=== PATIENT | female | born 1990 | race Caucasian/White ===

== ENCOUNTER 2017-04-24 11:35 | Emergency (ER) | payer BC ==
[~2017-04-24] VITALS: Ht 160 cm; Wt 83.9 kg
[2017-04-24 11:44] VITALS: TEMP 37; Ht 160 cm; Wt 83.9 kg
[2017-04-24] MEDS ORDERED: KETOROLAC TROMETHAMINE 30 MG/ML VIAL IV STA (11:59)
[2017-04-24] MEDS ORDERED: SODIUM CHLORIDE 0.9% 1000ML 1,000 ML IV STA (11:59)
[2017-04-24] MEDS ORDERED: BENZONATATE 100MG CAP PO ONE (12:00)
--- NOTE | 2017-04-24 12:14 | DIAGNOSTIC IMAGING REPORT ---
CHEST ONE VIEW PORTABLE CLINICAL HISTORY: 26 years-old Female presenting with cough, loss of voice . TECHNIQUE: Portable upright AP view of the chest was obtained. COMPARISON: None. FINDINGS: Cardiomediastinal silhouette normal. Lungs and pleural spaces clear. Osseous structures normal. Upper abdomen normal. IMPRESSION: 1. No acute cardiopulmonary disease. Electronically signed by: Yasmany Ford M.D. 04/24/2017 12:13 PM Dictated Date/Time: 04/24/2017 12:12 PM
[2017-04-24 12:30] LABS: BASO % 0.3 %; BASO ABS # 0.03 K/uL (0-0.2); COMPLETE YES; EOS % 3.2 %; HEMATOCRIT 37.8 % (37-47); IG% 0.3 %; LYMPH % 33.9 %; LYMPH ABS # 2.96 K/uL (1.2-3.4); MEAN CELL VOLUME 83.3 fL (80-100); MEAN CORPUSCULAR HEMOGLOBIN 28.2 pg (25-34); MEAN CORPUSCULAR HGB CONC 33.9 g/dl (32-36); MEAN PLATELET VOLUME 9.5 fL (7.4-10.4); MONO % 3.8 %; NEUT % 58.5 %; PLATELET COUNT 381 K/uL (130-400); RED BLOOD COUNT 4.54 M/uL (4.2-5.4); WHITE BLOOD COUNT 8.72 K/uL (4.8-10.8)
[2017-04-24 12:49] LABS: BUN/CREATININE RATIO 14.6 (10-20); CALCIUM 9.5 mg/dl (8.5-10.1); CREATININE 0.72 mg/dl (0.60-1.20); POTASSIUM 3.8 mmol/L (3.5-5.1)
[2017-04-24 14:05] VITALS: BP 148/97; PULSE 83; O2SAT 99
--- NOTE | 2017-04-24 17:13 | EMERGENCY ROOM VISIT NOTE ---
History Report prepared by Leroy: Tobi Weinstein Under the Supervision of: Dr. Boo Hernandez D.O. First contact with patient: 11:51 Chief Complaint: COUGH Stated Complaint: COUGH,LOSS OF VOICE, CHEST PAIN History of Present Illness The patient is a 26 year old female who presents to the Emergency Room with complaints of a worsening cough for the past fives days. The patient states that five days ago she started to lose her voice, and she has been having a productive cough brining up green sputum. The patient states that she additionally has a fever, though it has never gotten above 100.4. She states that she is having some chest pain and back pain, though she thinks that it is due to the coughing. The patient additionally states that today her right ear started ringing, and she has been having a sore throat. Patient denies diabetes , hypertension, hyperlipidemia, CAD, history of sudden at a young age, and smoking. Patient denies swelling of calves, recent trips, history of immobilization or recent surgery, prior history of DVT, hemoptysis, history of malignancy, history of smoking, or control/estrogen use. Pt denies headache, change in vision, shortness of breath, nausea, vomiting, diarrhea, pain with urination, and melena. Source of History: patient Onset: five days Position: other (global) Quality: other (cough) Timing: worsening Associated Symptoms: + fevers, + sorethroat, + chest pain, + back pain Note: Associated symptoms: Losing voice, ear ringing Review of Systems See HPI for pertinent positives & negatives. A total of 10 systems reviewed and were otherwise negative. Past Medical & Surgical Medical Problems: (1) Asthma Social History Smoking Status: Never Smoker Marital Status: in relationship Housing Status: lives with significant other Occupation Status: employed Current/Historical Medications No Active Prescriptions or Reported Meds Allergies Coded Allergies: No Known Allergies (Unverified , 04/24/17) Physical Exam Vital Signs Date Time Temp Pulse Resp B/P (MAP) Pulse Ox O2 Delivery O2 Flow Rate FiO2 04/24/17 14:05 83 18 148/97 99 04/24/17 12:47 91 16 120/84 100 Room Air 04/24/17 11:44 37.0 101 20 145/93 95 Room Air Physical Exam GENERAL: Sitting up in bed, no acute distress, non-toxic. Talking in full sentenced with quiet voice. EYE EXAM: normal conjunctiva OROPHARYNX: no exudate, no erythema, lips, buccal mucosa, and tongue normal and mucous membranes are moist NECK: supple, no nuchal rigidity, no adenopathy, non-tender CHEST: Acute reproducible tenderness under the right breast. LUNGS: Faint wheezing bilaterally. Normal chest wall mechanics HEART: no murmurs, S1 normal and S2 normal ABDOMEN: abdomen soft, non-tender, normo-active bowel sounds, no masses, no rebound or guarding. BACK: Acute reproducible tenderness in the upper thoracic region. Back is symmetrical on inspection and there is no deformity, no midline tenderness, no CVA tenderness. SKIN: no rashes and no bruising UPPER EXTREMITIES: upper extremities are grossly normal. LOWER EXTREMITIES: No pitting edema. NEURO EXAM: Normal sensorium, cranial nerves II-XII grossly intact, normal speech, no gross weakness of arms, no gross weakness of legs. Gross sensation intact. Medical Decision & Procedures ER Provider Diagnostic Interpretation: Radiology results as stated below per my review and the radiologist's interpretation: CHEST ONE VIEW PORTABLE CLINICAL HISTORY: 26 years-old Female presenting with cough, loss of voice . TECHNIQUE: Portable upright AP view of the chest was obtained. COMPARISON: None. FINDINGS: Cardiomediastinal silhouette normal. Lungs and pleural spaces clear. Osseous structures normal. Upper abdomen normal. IMPRESSION: 1. No acute cardiopulmonary disease. Electronically signed by: Yasmany Ford M.D. 04/24/2017 12:13 PM Dictated Date/Time: 04/24/2017 12:12 PM Laboratory Results 04/24/17 12:15 Red Blood Count 4.54, Mean Corpuscular Volume 83.3, Mean Corpuscular Hemoglobin 28.2, Mean Corpuscular Hemoglobin Concent 33.9, Mean Platelet Volume 9.5, Neutrophils (%) (Auto) 58.5, Lymphocytes (%) (Auto) 33.9, Monocytes (%) (Auto) 3.8, Eosinophils (%) (Auto) 3.2, Basophils (%) (Auto) 0.3, Neutrophils # (Auto) 5.09, Lymphocytes # (Auto) 2.96, Monocytes # (Auto) 0.33, Eosinophils # (Auto) 0.28, Basophils # (Auto) 0.03 04/24/17 12:15 Test 04/24/17 12:15 White Blood Count 8.72 K/uL (4.8-10.8) Red Blood Count 4.54 M/uL (4.2-5.4) Hemoglobin 12.8 g/dL (12.0-16.0) Hematocrit 37.8 % (37-47) Mean Corpuscular Volume 83.3 fL (80-100) Mean Corpuscular Hemoglobin 28.2 pg (25-34) Mean Corpuscular Hemoglobin Concent 33.9 g/dl (32-36) Platelet Count 381 K/uL (130-400) Mean Platelet Volume 9.5 fL (7.4-10.4) Neutrophils (%) (Auto) 58.5 % Lymphocytes (%) (Auto) 33.9 % Monocytes (%) (Auto) 3.8 % Eosinophils (%) (Auto) 3.2 % Basophils (%) (Auto) 0.3 % Neutrophils # (Auto) 5.09 K/uL (1.4-6.5) Lymphocytes # (Auto) 2.96 K/uL (1.2-3.4) Monocytes # (Auto) 0.33 K/uL (0.11-0.59) Eosinophils # (Auto) 0.28 K/uL (0-0.5) Basophils # (Auto) 0.03 K/uL (0-0.2) RDW Standard Deviation 44.7 fL (36.4-46.3) RDW Coefficient of Variation 14.6 % (11.5-14.5) Immature Granulocyte % (Auto) 0.3 % Immature Granulocyte # (Auto) 0.03 K/uL (0.00-0.02) D-Dimer < 190 ug/L FEU (0-500) Anion Gap 9.0 mmol/L (3-11) Est Creatinine Clear Calc Drug Dose 119.3 ml/min Estimated GFR () 132.1 Estimated GFR (Non- 114.0 BUN/Creatinine Ratio 14.6 (10-20) Calcium Level 9.5 mg/dl (8.5-10.1) Laboratory results per my review. Medications Administered Medications (Trade) Dose Ordered Sig/Dayday Route Start Time Stop Time Status Last Admin Dose Admin Sodium Chloride 1,000 ml @ 999 mls/hr Q1H1M STAT IV 04/24/17 11:59 04/24/17 12:59 DC 04/24/17 12:28 999 MLS/HR Ketorolac Tromethamine (Toradol Inj) 30 mg NOW STAT IV 04/24/17 11:59 04/24/17 12:00 DC 04/24/17 12:29 30 MG Benzonatate (Tessalon Perles Cap) 100 mg NOW ONCE PO 04/24/17 12:00 04/24/17 12:01 DC 04/24/17 12:28 100 MG ED Course ED COURSE: Vital signs were reviewed and showed tachycardia and situational hypertension The patients medical record was reviewed The above diagnostic studies were performed and reviewed. ED treatments and interventions as stated above. 1151: The patient was evaluated in room B8. A complete history and physical examination was performed. 1159: Toradol Inj 30mf IV, Sodium Chloride 1000 ml @ 999 mls/hr IV 1200: Benzonatate 100mg PO 1401: Upon reevaluation, the patient is feeling better.I discussed my findings with the patient and she understands and agrees with the treatment plan. Based on the patients age, coexisting illnesses, exam and lab findings the decision to treat as an outpatient was made. The patient remained stable while under my care. The patient appeared well at the time of discharge. Medical Decision Differential diagnoses includes but is not limited to pneumonia, bronchitis, COPD/Asthma exacerbation, pneumothorax, pulmonary embolism, congestive heart failure, acute coronary syndrome. Patient is a 26-year-old female who presents to ER for loss of voice 5 days ago associated with a cough, runny nose and a green productive sputum. She missed to right-sided chest pain which is clearly reproducible on exam. Chest x-ray shows no infiltrate. Vitals are stable. No recorded fevers. CBC along with BMP was unremarkable. D-dimer was negative. 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 Discussed with Pt concerning signs and symptoms to watch out for. Pt was instructed to follow up with their PCP and discussed with the patient their option to return to the ED at anytime for persistent or worsening symptoms. The appropriate anticipatory guidance and out-patient management, including indications for return to the emergency department, were explained at length to the patient and understood. Medication Reconcilliation Current Medication List: was personally reviewed by me Blood Pressure Screening Patient's blood pressure: Elevated blood pressure Blood pressure disposition: Elevated BP felt to be situational Impression Primary Impression: Laryngitis Additional Impression: Bronchitis Scribe Attestation The scribe's documentation has been prepared under my direction and personally reviewed by me in its entirety. I confirm that the note above accurately reflects all work, treatment, procedures, and medical decision making performed by me. Departure Information Dispostion Home / Self-Care Prescriptions No Active Prescriptions or Reported Meds Referrals No Doctor, Assigned (PCP) Forms HOME CARE DOCUMENTATION FORM, IMPORTANT VISIT INFORMATION Patient Instructions My [facility] Additional Instructions Please follow up with your primary care doctor with in the next 24 hours. Any worsening of your symptoms, please return to the ED immediately. This includes any fevers greater than 100.4, worsening pain, chest pain, shortness breath, persistent nausea, vomiting, unable to eat or drink, or any other concerning signs or symptoms from your standpoint. Problem Qualifiers
== END 2017-04-24 14:06 | disposition home or self-care (01) ==
LOC: C.EDB 11:37
DX: J04.0 Acute laryngitis (principal); J40 Bronchitis, not specified as acute or chronic; J45.909 Unspecified asthma, uncomplicated

== ENCOUNTER → 2017-11-28 | Outpatient (CLI) | payer BC, OTHER ==
--- NOTE | 2017-11-28 13:53 | DIAGNOSTIC IMAGING REPORT ---
Study: Left hip and pelvis HISTORY: Pain FINDINGS: Normal pelvis. Normal hips. No evidence for acetabular protrusion. No evidence for an avulsion abnormality. IMPRESSION: Negative study Electronically signed by: Timothy Espinoza M.D. 11/28/2017 1:52 PM Dictated Date/Time: 11/28/2017 1:50 PM
== END | disposition home or self-care (01) ==
LOC: C.RDSM 13:20
PROVIDERS: ATTEND Family Medicine
DX: M25.552 Pain in left hip (principal)